=== PATIENT | female | born 1990 | race Caucasian/White ===

== ENCOUNTER → 2019-05-29 | Outpatient (CLI) | payer OTHER ==
--- NOTE | 2019-05-29 11:23 | REP ---
Clinical: Anatomical evaluation. Comparison: None . Findings: Examination demonstrates a single live intrauterine in cephalic presentation. motion is identified by technologist. Placenta is noted anterior/fundal and grade zero without evidence for placenta previa or abruption. Amniotic fluid volume is normal. Cervix measures 4.0 cm in length and appears closed. No evidence for nuchal cord. Gestational age by LMP 18 weeks 1 day with CHINTAN 10/12/2019 . Gestational age by current measurements 19 weeks 1 day with CHINTAN 10/22/2019 . FHR equals 139 beats per minute. BPD 4.5 cm 19 weeks 4 days HC 16.0 cm 18 weeks 6 days AC 13.8 cm 19 weeks 2 days FL 2.9 cm 18 weeks 6 days HL 2.9 cm 19 weeks 3 days HC/AC ratio 1.16 Estimated weight 272 grams ( 86 percentile). Anatomical assessment demonstrates normal structures including cranium, choroid plexus, cavum, cerebellum/posterior fossa, facial features, lungs, four-chamber heart, diaphragm, stomach, cord insertion/three-vessel cord, kidneys/bladder, and extremities. Limited evaluation of the cardiac ventricular outflow tract and spine. Impression: 1. Single live intrauterine in cephalic presentation demonstrating appropriate interval growth. 2. Anatomical limitations as noted above. Remainder of the anatomical assessment is complete and normal. Consider follow-up examination. Electronically Signed by Jignesh Villa MD 05/29/2019 11:15 A
== END ==
LOC: M RAD 09:52
PROVIDERS: ATTEND Nurse Practitioner Women's Health
DX: Z34.82 Encounter for supervision of other normal pregnancy, second trimester (principal)

== ENCOUNTER 2021-01-15 07:49 | Emergency (ER) | payer OTHER ==
[~2021-01-15] VITALS: Ht 177.8 cm; Wt 77.7 kg
[2021-01-15] MEDS ORDERED: ACET-683 PO (08:00)
[2021-01-15] MEDS ORDERED: DULO1CAP5 (08:00)
[2021-01-15] MEDS ORDERED: IBUP200T45 PO (08:00)
[2021-01-15] MEDS ORDERED: BUSP10TA (08:00)
[2021-01-15 09:16] LABS: BASO # 0.1 10^3/uL (0.0-0.2); BASO % 0.7 % (0.0-1.0); EOS # 0.1 10^3/uL (0.0-0.5); EOS % 1.3 % (0.0-3.0); HEMATOCRIT 40.2 % (36.0-47.0); HEMOGLOBIN 13.3 g/dl (12.0-15.5); LYMPH # 1.4 10^3/uL (1.5-5.0); MEAN CORPUSCULAR HEMOGLOBIN 29.2 pg (27.0-33.0); MEAN CORPUSCULAR HGB CONC 33.1 g/dl (32.0-36.5); MEAN CORPUSCULAR VOLUME 88.2 fl (80.0-96.0); MONO # 0.3 10^3/uL (0.0-0.8); MONO % 3.5 % (2.0-8.0); NEUTROPHILS % 78.1 % (36.0-66.0); PLATELET COUNT, AUTOMATED 255 10^3/uL (150-450); RED BLOOD COUNT 4.56 10^6/uL (4.00-5.40)
--- NOTE | 2021-01-15 09:21 | REP ---
INDICATION: left posterior ear pain r/o mastoiditis. COMPARISON: NONE. TECHNIQUE: Helical scanning is acquired and 2 mm axial images re-formatted. Coronal MPR images are generated and reviewed. FINDINGS: Digital preliminary form builder radiographs are unremarkable except for the presence of metallic nasal jewelry. On axial CT images there is a mucous retention cyst in the floor of the right maxillary sinus measuring 1.5 cm in greatest transverse dimension by 2.4 cm anterior to posterior. The right maxillary sinus is otherwise clear. Left maxillary sinus is clear. Ostiomeatal complexes are patent. Bony nasal septum is in the midline. Nasal turbinates soft tissues are unremarkable. Ethmoid and sphenoid aeration is normal. The frontal sinuses are not developed on either side. The mastoid sinuses are clear bilaterally. There is no evidence of mastoiditis on either side. Periauricular and adjacent scalp soft tissues are unremarkable and symmetric. The external auditory canal is patent bilaterally. Middle ear cavities are aerated bilaterally. No temporal bone abnormality is appreciated. IMPRESSION: Mucous retention cyst in the floor of the right maxillary sinus. Otherwise negative maxillofacial/paranasal sinus CT. No temporal bone lesion or evidence of mastoiditis. <Electronically signed by Nick Quintero > 01/15/21 [id number]
[2021-01-15 09:27] LABS: BLOOD UREA NITROGEN 9 MG/DL (7-18); CALCIUM LEVEL 9.1 MG/DL (8.5-10.1); CARBON DIOXIDE LEVEL 25 MEQ/L (21-32); CHLORIDE LEVEL 108 MEQ/L (98-107); CREATININE FOR GFR 0.55 MG/DL (0.55-1.30); GLOMERULAR FILTRATION RATE > 60.0 (>60); GLUCOSE, FASTING 98 MG/DL (70-100); SODIUM LEVEL 138 MEQ/L (136-145)
[2021-01-15 09:40] LABS: ERYTHROCYTE SEDIMENTATION RATE 5 mm/hr (0-20)
[2021-01-15] MEDS ORDERED: CEFD300CAP PO (10:18)
[2021-01-15 10:37] VITALS: BP 128/71
== END 2021-01-15 10:40 | disposition home or self-care (01) ==
LOC: M ED 07:49
DX: H60.92 Unspecified otitis externa, left ear (principal); R59.0 Localized enlarged lymph nodes; J34.1 Cyst and mucocele of nose and nasal sinus; R05 Cough; F41.9 Anxiety disorder, unspecified; F33.9 Major depressive disorder, recurrent, unspecified; Z79.899 Other long term (current) drug therapy